=== PATIENT | female | born 1935 | race Caucasian/White ===

== ENCOUNTER 2017-08-30 09:41 | Observation (INO) | payer MEDICARE ==
[2017-08-30] VITALS (11 sets, daily range): BP systolic 95–176; BP diastolic 56–76
[~2017-08-30] VITALS: Ht 167.6 cm; Wt 57.6 kg
[2017-08-30] MEDS ORDERED: METO50TA2 PO (10:09)
--- NOTE | 2017-08-30 10:10 | ED Chest Pain ---
General Chief Complaint: Chest Pain Stated Complaint: CHEST/BACK PAIN Nursing Triage Note: ARRIVED VIA AMB TO ROOM 07 WITH COMPLAINTS OF BACK PAIN X2 DAYS THAT HAS MOVED INTO HER NECK, LEFT ARM, AND CHEST. Nursing Sepsis Screen: No Definite Risk Source: patient Exam Limitations: no limitations History of Present Illness Time seen by provider: 10:05 Initial Comments This 81-year-old white female presents with a complaint of sharp severe back pain between the shoulder blades that began several days ago and has subsequently radiated into the left side of the neck and left arm there is been similar but less intense chest pain in the anterior precordium. The patient's pain is not made worse with motion. There is no associated shortness of breath, nausea, diaphoresis, paresthesias or weakness in the extremities, or similar episode in the past. The patient is under the care of Drs. Sanders and Garrett. The patient has received treatment for dizziness from Dr. Tucker with medication. The history is somewhat mottled but I believe that Dr. Tucker has been treating an elevated blood pressure which she feels is causing dizziness. Patient states with the medication prescribed she is much improved in terms of her dizziness. 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 There is a family history of heart disease. Patient denies use of ethanol, recreational drugs, or nicotine. Allergies and Home Medications Allergies Coded Allergies: No Known Drug Allergies (Unverified , 02/17/14) Home Medications Metoprolol Tartrate 50 Mg Tablet, 50 MG PO DAILY, (Reported) Review of Systems Constitutional: chills, No fever EENTM: No Blurred Vision Respiratory: Denies Cough, Denies Shortness of Air Cardiovascular: Chest Pain Gastrointestinal: Denies Abdomen Distended, Denies Abdominal Pain, Denies Nausea, Denies Vomiting Genitourinary: Denies Burning, Denies Discharge Musculoskeletal: see HPI, back pain Skin: No change in color, No rash Psychiatric/Neurological: No Symptoms Reported Endocrine: No Symptoms Reported Hematologic/Lymphatic: No Symptoms Reported Past Mzombnq-Fvwuqw-Vpovkr Hx Patient Social History Recent Foreign Travel: No Contact w/Someone Who Travel: No Recent Infectious Disease Expo: No Immunizations Up To Date Date of Pneumonia Vaccine: Nov 05, 2009 Reviewed Nursing Assessment Reviewed/Agree w Nursing PMH: Yes Physical Exam Vital Signs Vital Sign - Last 12Hours 08/30/17 09:56 Temp 98.0 Pulse 63 Resp 18 B/P (MAP) 191/85 Pulse Ox 100 O2 Delivery Room Air Capillary Refill : Less Than 3 Seconds General Appearance: No Apparent Distress, WD/WN HEENT: PERRL/EOMI, Normal ENT Inspection Neck: Normal Inspection Respiratory: Lungs Clear Cardiovascular: Regular Rate, Rhythm, No Edema, No Gallop, No JVD, No Murmur, Normal Peripheral Pulses Gastrointestinal: Normal Bowel Sounds, No Organomegaly, No Pulsatile Mass, Non Tender, Soft Extremity: Normal Capillary Refill, Normal Inspection, Normal Range of Motion, Non Tender, No Calf Tenderness Neurologic/Psychiatric: Alert, Oriented x3, No Motor/Sensory Deficits, Normal Mood/Affect, 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 Norm as Tested Skin: Normal Color, Warm/Dry Progress/Results/Core Measures Results/Orders Lab Results Laboratory Tests Test 08/30/17 09:50 Range/Units White Blood Count 6.8 4.3-11.0 10^3/uL Red Blood Count 4.18 L 4.35-5.85 10^6/uL Hemoglobin 13.4 11.5-16.0 G/DL Hematocrit 41 35-52 % Mean Corpuscular Volume 98 80-99 FL Mean Corpuscular Hemoglobin 32 25-34 PG Mean Corpuscular Hemoglobin Concent 33 32-36 G/DL Red Cell Distribution Width 13.3 10.0-14.5 % Platelet Count 259 130-400 10^3/uL Mean Platelet Volume 10.3 7.4-10.4 FL Neutrophils (%) (Auto) 62 42-75 % Lymphocytes (%) (Auto) 26 12-44 % Monocytes (%) (Auto) 10 0-12 % Eosinophils (%) (Auto) 1 0-10 % Basophils (%) (Auto) 0 0-10 % Neutrophils # (Auto) 4.2 1.8-7.8 X 10^3 Lymphocytes # (Auto) 1.8 1.0-4.0 X 10^3 Monocytes # (Auto) 0.7 0.0-1.0 X 10^3 Eosinophils # (Auto) 0.1 0.0-0.3 10^3/uL Basophils # (Auto) 0.0 0.0-0.1 10^3/uL Prothrombin Time 13.6 12.2-14.7 SEC INR Comment 1.0 0.8-1.4 Activated Partial Thromboplast Time 29 24-35 SEC D-Dimer 1.12 H 0.00-0.49 UG/ML Sodium Level 140 135-145 MMOL/L Potassium Level 3.9 3.6-5.0 MMOL/L Chloride Level 106 98-107 MMOL/L Carbon Dioxide Level 27 21-32 MMOL/L Anion Gap 7 5-14 MMOL/L Blood Urea Nitrogen 12 7-18 MG/DL Creatinine 0.83 0.60-1.30 MG/DL Estimat Glomerular Filtration Rate > 60 BUN/Creatinine Ratio 14 Glucose Level 104 70-105 MG/DL Calcium Level 9.6 8.5-10.1 MG/DL Magnesium Level 2.0 1.8-2.4 MG/DL Total Bilirubin 0.6 0.1-1.0 MG/DL Aspartate Amino Transf (AST/SGOT) 15 5-34 U/L Alanine Aminotransferase (ALT/SGPT) 13 0-55 U/L Alkaline Phosphatase 61 40-136 U/L Myoglobin 38.0 10.0-92.0 NG/ML Troponin I < 0.30 <0.30 NG/ML Total Protein 6.6 6.4-8.2 GM/DL Albumin 3.9 3.2-4.5 GM/DL Lipase 17 8-78 U/L My Orders Orders - CLAUDINEERNIE MD Cbc With Automated Diff (08/30/17 10:03) Magnesium (08/30/17 10:03) Chest 1 View, Ap/Pa Only (08/30/17 10:03) Ekg Tracing (08/30/17 10:03) Cardiac Profile 1 (08/30/17 10:03) Comprehensive Metabolic Panel (08/30/17 10:03) Myoglobin Serum (08/30/17 10:03) Protime With Inr (08/30/17 10:03) Partial Thromboplastin Time (08/30/17 10:03) O2 (08/30/17 10:03) Monitor-Rhythm Ecg Trace Only (08/30/17 10:03) Lipid Panel (08/31/17 06:00) Nitroglycerin 0.4 Mg Btl 25's (Nitrostat (08/30/17 10:15) Saline Lock/Iv-Start (08/30/17 10:03) Lipase (08/30/17 10:03) Fibrin Degradation Products (08/30/17 10:03) Ct Chest W (08/30/17 10:54) Acetaminophen Tablet (Tylenol Tablet) (08/30/17 11:15) Iohexol Injection (Omnipaque 350 Mg/Ml 1 (08/30/17 11:30) Ns (Ivpb) (Sodium Chloride 0.9% Ivpb Bag (08/30/17 11:30) Medications Given in ED Current Medications Medications Dose Ordered Sig/Lito Route Start Time Stop Time Status Last Admin Dose Admin Acetaminophen 1,000 mg ONCE ONCE PO 08/30/17 11:15 08/30/17 11:16 DC 08/30/17 11:11 1,000 MG Iohexol 75 ml ONCE ONCE IV 08/30/17 11:30 08/30/17 11:31 DC 08/30/17 11:45 75 ML Nitroglycerin 0.4 mg UD PRN SL 08/30/17 10:15 08/30/17 10:44 DC 08/30/17 10:43 0.4 MG Sodium Chloride 100 ml ONCE ONCE IV 08/30/17 11:30 08/30/17 11:31 DC 08/30/17 11:45 80 ML Vital Signs/I&O Vital Sign - Last 12Hours 08/30/17 09:56 Temp 98.0 Pulse 63 Resp 18 B/P (MAP) 191/85 Pulse Ox 100 O2 Delivery Room Air Blood Pressure Mean: 120 Progress Note : Time: 13:41 Progress Note The patient's EKG they'll demonstrate evidence of an acute current of injury. Her first troponin was normal. The patient's d-dimer was elevated but fortunately her CT of the chest film demonstrated evidence of a pulmonary emboli. The patient's chest pain was treated with sublingual nitroglycerin 0.4 mg 3. The patient's back and chest neck and arm pain abated with the third nitroglycerin. Told consultation was undertaken with Dr. Sanders's office. I spoke to her nurse and the patient was admitted. I spoke with Dr. Saez for Dr. Tucker and a consult was arranged. Departure Communication (Admissions) Time/Spoke to Admitting Phy: 13:[address] Sanders Time/Spoke to Consulting Phy: 13:43 Communication/Consulting Dr. Saez Impression Impression: Primary Impression: Chest pain Qualified Codes: R07.9 - Chest pain, unspecified Disposition: 09 ADMITTED INPATIENT Condition: Improved Admissions Decision to Admit Reason: Admit from ER (General) Decision to Admit/Date: Aug 30, 2017 Time/Decision to Admit Time: 13:44 Departure-Patient Inst. Referrals: MIKE SANDERS MD (PCP/Family) Primary Care Physician ERNIE CHOW MD Aug 30, 2017 10:10
[2017-08-30 10:11] LABS: BASOPHILS % (AUTO) 0 % (0-10); EOSINOPHILS # (AUTO) 0.1 10^3/uL (0.0-0.3); EOSINOPHILS % (AUTO) 1 % (0-10); LYMPHOCYTES # (AUTO) 1.8 X 10^3 (1.0-4.0); LYMPHOCYTES % (AUTO) 26 % (12-44); MEAN CORPUSCULAR HEMOGLOBIN 32 PG (25-34); MEAN CORPUSCULAR HGB CONC 33 G/DL (32-36); MEAN CORPUSCULAR VOLUME 98 FL (80-99); MEAN PLATELET VOLUME 10.3 FL (7.4-10.4); MONOCYTES # (AUTO) 0.7 X 10^3 (0.0-1.0); MONOCYTES % (AUTO) 10 % (0-12); NEUTROPHILS # (AUTO) 4.2 X 10^3 (1.8-7.8); NEUTROPHILS % (AUTO) 62 % (42-75); PLATELET COUNT 259 10^3/uL (130-400); RED BLOOD COUNT 4.18 10^6/uL (4.35-5.85); RED CELL DISTRIBUTION WIDTH 13.3 % (10.0-14.5); WHITE BLOOD COUNT 6.8 10^3/uL (4.3-11.0)
[2017-08-30 10:14] LABS: PROTHROMBIN TIME PATIENT 13.6 SEC (12.2-14.7)
[2017-08-30] MEDS: NITROGLYCERIN 0.4 MG SL TABS BTL 25'S SL PRN ×3 (10:18→10:43)
[2017-08-30 10:26] LABS: ALANINE AMINOTRANSFERASE 13 U/L (0-55); ALBUMIN 3.9 GM/DL (3.2-4.5); ANION GAP 7 MMOL/L (5-14); ASPARTATE AMINO TRANSFERASE 15 U/L (5-34); BILIRUBIN,TOTAL 0.6 MG/DL (0.1-1.0); BLOOD UREA NITROGEN 12 MG/DL (7-18); BUN/CREATININE RATIO 14; CALCIUM 9.6 MG/DL (8.5-10.1); CARBON DIOXIDE 27 MMOL/L (21-32); CHLORIDE 106 MMOL/L (98-107); CREATININE SERUM 0.83 MG/DL (0.60-1.30); GFR ESTIMATED > 60; GLUCOSE 104 MG/DL (70-105); LIPASE 17 U/L (8-78); POTASSIUM 3.9 MMOL/L (3.6-5.0); SODIUM 140 MMOL/L (135-145); TOTAL PROTEIN 6.6 GM/DL (6.4-8.2)
--- NOTE | 2017-08-30 10:30 | Diagnostic Imaging Report ---
Upright portable radiograph of the chest. INDICATION: Chest pain. FINDINGS: The lungs are hyperinflated with no focal airspace opacity. The heart size is mildly enlarged. No effusion or pneumothorax. The mediastinum and lana appear unremarkable. Mild opacity along the medial aspect of the right lung base is probably related to a prominent pericardial fat pad. IMPRESSION: Hyperinflated clear lungs. Mild cardiomegaly. Dictated by: Dictated on workstation # [id number]
[2017-08-30] MEDS ORDERED: ACETAMINOPHEN 500 MG TAB (TYLENOL) PO ONE (11:15)
[2017-08-30] MEDS ORDERED: NS 100 ML (IVPB) BAG IV ONE (11:30)
[2017-08-30] MEDS ORDERED: IOHEXOL 350 MG/ML 100 ML (OMNIPAQUE 350) VIAL IV ONE (11:30)
--- NOTE | 2017-08-30 12:16 | Diagnostic Imaging Report ---
PROCEDURE: CT chest with contrast only. TECHNIQUE: Multiple contiguous axial images were obtained through the chest after administration of intravenous contrast. INDICATION: Chest pain. 75 mL of Omnipaque 350 is administered intravenously. FINDINGS: There is an anterior mediastinal lobulated fluid-attenuating mass measuring 2.9 x 1.4 x 3.1 cm. This is abutting the anterior aspect of the ascending aorta. The fluid attenuation and lack of enhancing component is suggestive of a benign etiology such as a pericardial cyst or lymphatic malformation. There is no enhancing mass in the mediastinum or significant enlarged lymph node. No lymphadenopathy in the alna. No axillary lymphadenopathy is seen. The thoracic aorta is normal in caliber. The heart size is at the upper limits of normal. The lungs demonstrate no significant consolidation or mass. Sections of the upper abdomen demonstrate hepatic cysts. These are seen mostly in the left hepatic lobe up to 1.6 cm in size. The osseous structures appear grossly unremarkable. IMPRESSION: 1. 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 No solid mass or lymphadenopathy is evident. 2. Hepatic cysts. Dictated by: Dictated on workstation # [id number]
--- OUTSIDE RECORDS SUMMARY | 2017-08-30 13:55 | XMS REPORT | Continuity of Care Document ---
Author Author [facility] Organization [facility] Address Unknown Phone Unavailable Allergies Active Description Code Type Severity Reaction Onset Reported/Identified Relationship to Patient Clinical Status Yes No Known Drug Allergies [id number] Drug Allergy Unknown N/ A 02/17/2014 Medications Problems Date Dx Coded Attending Type Code Diagnosis Diagnosed By 02/18/2014 ABDIEL OVERTON DO Ot 173.62 02/18/2014 ABDIEL OVERTON DO Ot V74.8 06/16/2015 ABDIEL OVERTON DO Ot 719.94 06/16/2015 ABDIEL OVERTON DO Ot V72.63 06/16/2015 ABDIEL OVERTON DO Ot V72.81 06/16/2015 ABDIEL OVERTON DO Ot V72.83 06/16/2015 ABDIEL OVERTON DO Ot V72.84 06/23/2015 VALDEMAR CASTANON, MIKE Valadez Ot 427.89 07/06/2015 VALDEMAR CASTANON, MIKE Valadez Ot 427.89 07/15/2015 MIKE ALDRICH MD Ot 427.89 10/13/2015 ASAEL CASTANON FACC, SHIVAM FACP CCDS Ot I10 10/13/2015 ASAEL CASTANON FACC, SHIVAM FACP CCDS Ot I49.5 10/13/2015 ASAEL CASTANON FACC, ALI FACP CCDS Ot I73.9 10/13/2015 ASAEL CASTANON FACC, ALI FACP CCDS Ot R06.00 10/13/2015 ASAEL CASTANON FACC, SHIVAM FACP CCDS Ot R07.89 10/21/2015 ASAEL CASTANON FACC, ALI FACP CCDS Ot I10 10/21/2015 ASAEL CASTANON FACC, SHIVAM FACP CCDS Ot I49.5 10/21/2015 ASAEL MAGUIREC, ALI FACP CCDS Ot I73.9 10/21/2015 ASAEL CASTANON FACC, ALI FACP CCDS Ot R06.00 10/21/2015 ASAEL CASTANON FACC, ALI FACP CCDS Ot R07.89 Procedures Results Encounters ACCT No. Visit Date/Time Discharge Status Pt. Type Provider Facility Loc./Unit Complaint [id number] 08/10/2015 10:30:00 2014 23:59:59 CLS Outpatient ASAEL CASTANON FACC, SHIVAM FACP CCDS [facility] RAD [id number] 08/10/2015 10:04:00 2014 23:59:59 CLS Outpatient ASAEL CASTANON FACC, ALI FACP CCDS [facility] CARD [id number] 06/16/2015 11:30:00 2014 23:59:59 CLS Outpatient MIKE ALDRICH MD [facility] CARD [id number] 02/18/2014 11:30:00 2013 15:15:00 DIS Outpatient ABDIEL OVERTON DO [facility] [id number] 02/17/2014 14:42:00 2013 23:59:59 CLS Outpatient ABDIEL OVERTON DO [facility] PREOP
[2017-08-30] MEDS ORDERED: NITROGLYCERIN 0.4 MG SL TABS BTL 25'S SL PRN (14:45)
[2017-08-30] MEDS ORDERED: morphine INJ 4 MG/ML 1 ML (VIAL/SYRINGE) IV PRN (14:45)
[2017-08-30] MEDS ORDERED: METO-272 PO (14:52)
[2017-08-30] MEDS ORDERED: ASPI-983 PO (14:54)
[2017-08-30] MEDS: ASPIRIN E.C. 325 MG (ECOTRIN) TABLET PO SCH (15:06)
--- NOTE | 2017-08-30 15:43 | Consultation-Cardiology ---
HPI-Cardiology Cardiology Consultation Date of Consultation 08/30/17 Date of Admission Time Seen by Provider: 15:38 Indication: Chest pain HPI Patient is an 81 year old female with history of SVT, dizziness and near syncope. Dr Tucker is patient's primary member services coordinator. Presented to the ER with complaints of chest pain radiating to the back. Reports improvement with SL nitro. Currently complaining of left sided chest pain/pressure with radiation to the left arm. Denies any associated jaw pain, dyspnea, nausea. No other complaints at this time. This is an 81 years old lady with history of SVT has been managed by Dr. Tucker , had history of dizziness and lightheadedness for which she was treated with beta blockers and was doing well. She is been having recurrent episode of chest pain became worse recently, complaining of headache and left sided neck pain radiating to the left shoulder left arm and left side of her chest. Came into the emergency room, reporting improvement after receiving sublingual nitroglycerin. Denied any palpitation, syncope or near syncopal episodes. I was called for evaluation. Home Medications & Allergies Allergies: Coded Allergies: No Known Drug Allergies (Unverified , 08/30/17) Home Medication List Reviewed: Yes SCB-Dnhsef-Kphqlp Hx Patient Social History Employed/Student: retired Alcohol Use: Denies Use Recreational Drug Use: No Smoking Status: Never a Smoker Recent Foreign Travel: No Recent Infectious Disease Expo: No Recent Hopitalizations: No Physical Abuse Screen: No Sexual Abuse: No Immunizations Up To Date Date of Pneumonia Vaccine: Nov 05, 2009 Past Medical History HTN, SVT, near syncope Family Medical History Family History: Myocardial infarction 19 FATHER Neoplasm 19 FATHER Constitutional: No dizziness, No fever, No malaise, No weakness EENTM: No blurred vision, No double vision, No vision loss Respiratory: No cough, No dyspnea on exertion Cardiovascular: No chest pain, No edema, No Hx of Intervention, No palpitations Gastrointestinal: No abdominal pain, No constipation Reviewed Test Results Reviewed Test Results Lab Laboratory Tests 08/30/17 09:50: White Blood Count 6.8, Red Blood Count 4.18L, Hemoglobin 13.4, Hematocrit 41, Mean Corpuscular Volume 98, Mean Corpuscular Hemoglobin 32, Mean Corpuscular Hemoglobin Concent 33, Red Cell Distribution Width 13.3, Platelet Count 259, Mean Platelet Volume 10.3, Neutrophils (%) (Auto) 62, Lymphocytes (%) (Auto) 26 , Monocytes (%) (Auto) 10, Eosinophils (%) (Auto) 1, Basophils (%) (Auto) 0, Neutrophils # (Auto) 4.2, Lymphocytes # (Auto) 1.8, Monocytes # (Auto) 0.7, Eosinophils # (Auto) 0.1, Basophils # (Auto) 0.0, Prothrombin Time 13.6, INR Comment 1.0, Activated Partial Thromboplast Time 29, D-Dimer 1.12H, Sodium Level 140, Potassium Level 3.9, Chloride Level 106, Carbon Dioxide Level 27, Anion Gap 7, Blood Urea Nitrogen 12, Creatinine 0.83, Estimat Glomerular Filtration Rate > 60, BUN/Creatinine Ratio 14, Glucose Level 104, Calcium Level 9.6, Magnesium Level 2.0, Total Bilirubin 0.6, Aspartate Amino Transf (AST/SGOT ) 15, Alanine Aminotransferase (ALT/SGPT) 13, Alkaline Phosphatase 61, Myoglobin 38.0, Troponin I < 0.30, Total Protein 6.6, Albumin 3.9, Lipase 17 08/30/17 15:33: ECG Impression ECG Initial ECG Rhythm: Normal Sinus Physical Exam Vital Signs Vital Sign - Last 12Hours 08/30/17 09:56 Temp 98.0 Pulse 63 Resp 18 B/P (MAP) 191/85 Pulse Ox 100 O2 Delivery Room Air Capillary Refill : Less Than 3 Seconds General Appearance: No Apparent Distress, WD/WN HEENT: PERRL/EOMI, TMs Normal, Normal ENT Inspection, Pharynx Normal Neck: Non Tender, Supple, No Carotid Bruit Respiratory: Chest Non Tender, Lungs Clear, Normal Breath Sounds, No Accessory Muscle Use, No Respiratory Distress Cardiovascular: Regular Rate, Rhythm, No Edema, No Gallop, No JVD, No Murmur, Normal Peripheral Pulses Gastrointestinal: Non Tender, Soft Rectal: Deferred Back: No CVA Tenderness Extremity: No Calf Tenderness, No Pedal Edema Neurologic/Psychiatric: Alert, Oriented x3, fish flipper II-XII Norm as Tested A/P-Cardiology Admission Diagnosis Chest pain HTN SVT Palpitations Assessment/Plan Chest pain, nonspecific etiology- currently c/o CP with radiation to left arm, rates pain 2/10. Earlier had CP in the ER relieved by nitroglycerin. EKG reveals no acute ST changes, cardiac enzymes are negative so far. Stress test done 2014 revealed no ischemia or infarct. Will continue on telemetry, continue to monitor. Planning for LST in the morning. HTN- resume home blood pressure medications and continue to monitor. Hx of SVT- maintained on Cardizem as outpatient Palpitations- Holter monitor in the past revealed SR with PAC's, PVC's. Denies any recent palpitations Questionable pericardial cyst on CT scan of chest- further evaluation with 2D Echo Thank you for allowing us to participate in the management of Ms. Almanza. This is Flavia Hinds PA-C as a scribe for Dr. Saez. This is Dr. Saez, I have seen and evaluated the patient with Flavia, interviewed the patient and perform physical examination and agree with the current scribe. She is an 81 years old lady who was admitted with chest pain as described above, currently chest pain-free. I will continue monitoring her and planning to proceed with Lexiscan stress test, she has history of hypertension which will be monitored and her starting home medication, her palpitation has improved. She has questionable pericardiac cyst on CT scan of the chest. Planning to evaluate echocardiogram and monitoring as an outpatient. on examination lungs were clear to auscultation bilaterally, heart is regular rate and rhythm. 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
[2017-08-30 15:56] LABS: CREATINE KINASE 65 U/L (29-168)
[2017-08-30 16:02] LABS: TROPONIN I < 0.30 NG/ML (<0.30)
[2017-08-30] MEDS ORDERED: INFLUENZA TRIvalent 2017-2018 0.5 ML/45 MCG SYR IM ONE (16:45)
[2017-08-30] MEDS: ACETAMINOPHEN 325 MG TABLET/CAPLET (TYLENOL) PO PRN (17:20)
--- NOTE | 2017-08-30 20:07 | History & Physicial ---
History of Present Illness History of Present Illness Reason for visit/HPI PT REPORTS THAT SHE STARTED TO HAVE CHEST DISCOMFORT WITH PAIN GOING FROM HER LATERAL LEFT CHEST WALL TO HER UPPER BACK AND LEFT ARM FOR ABOUT 2 DAYS. SHE REPORTS THAT SHE HAS HAD PAIN OFF AND ON IN HER LEFT LATERAL ARM FOR A WHILE AND HAS BEEN AVOIDING SLEEPING ON THE LEFT SIDE FOR ABOUT A WEEK DUE TO DISCOMFORT IN HER ARM. SHE STATES THAT SHE HAS HAD A HEADACHE FOR A FEW DAYS WELL. SHE DENIES CURRENT CHEST PAIN. SHE DENIES DIZZINESS, ABDOMINAL PAIN, NAUSEA, GI/BOWEL CHANGES, DYSURIA. Date of Admission Aug 30, 2017 at 13:40 Date Seen by Provider: Aug 30, 2017 Time Seen by Provider: 18:00 I consulted on this patient on Attending Physician Mike Sanders MD Admitting Physician Mike Sanders MD Consult Allergies and Home Medications Allergies Coded Allergies: No Known Drug Allergies (Unverified , 08/30/17) Home Medications Aspirin 81 Mg Tablet.dr, 81 MG PO DAILY, (Reported) Metoprolol Succinate 50 Mg Tab.er.24h, 50 MG PO DAILY, (Reported) Past Lcobbuh-Wvtpeb-Iymlso Hx Patient Social History Marrital Status: Living Status: LIVES ALONE IN HOME IN [place] Employed/Student: retired Alcohol Use: Denies Use Recreational Drug Use: No Smoking Status: Never a Smoker 2nd Hand Smoke Exposure: No Physical Abuse Screen: No Sexual Abuse: No Recent Foreign Travel: No Contact w/other who traveled: No Recent Hopitalizations: No Recent Infectious Disease Expo: No Immunizations Up To Date Date of Pneumonia Vaccine: Nov 05, 2009 Seasonal Allergies Seasonal Allergies: No Surgeries Yes (MELANOMA REMOVED FROM HAND) Tonsillectomy Respiratory No Currently Using CPAP: No Currently Using BIPAP: No Cardiovascular Yes High Cholesterol, Hypertension Neurological No Reproductive System : No Hx Reproductive Disorders: No Sexually Transmitted Disease: No HIV/AIDS: No Female Reproductive Disorders: Denies RECORDS TECH History: Menopausal Genitourinary No Gastrointestinal No Musculoskeletal No Endocrine History of Endocrine Disorders: Yes ("BOARDERLINE" DM- DOES NOT TAKE MEDS) HEENT History of HEENT Disorders: No Cancer Yes Skin Did You Recieve Any Treatments: No Psychosocial History of Psychiatric Problem: No Integumentary History of Skin or Integumenta: No Blood Transfusions History of Blood Disorders: No Adverse Reaction to a Blood Tr: No Reviewed Nursing Assessment Reviewed/Agree w Nursing PMH: Yes Family Medical History Significant Family History: Heart Disease, Cancer, Hypertension Family Hx: Myocardial infarction 19 FATHER Neoplasm 19 FATHER Constitutional: No chills, No fever, No malaise, No weakness EENTM: No blurred vision, No hoarseness, No throat pain, No throat swelling Respiratory: No cough, No dyspnea on exertion, No orthopnea, No short of breath Cardiovascular: chest pain, No edema, No syncope Gastrointestinal: No abdominal pain, No constipation, No diarrhea, No nausea Genitourinary: No dysuria, No hematuria Musculoskeletal: back pain, muscle pain (UPPER BACK), other (LEFT SHOULDER PAIN , LEFT CHEST WALL PAIN) Skin: no symptoms reported, No pruritus, No rash Psychiatric/Neurological: Denies Anxiety, Denies Depressed, Headache, Denies Numbness, Denies Weakness All Other Systems Reviewed Negative Unless Noted: Yes Physical Exam Vital Signs Vital Sign - Last 12Hours 08/30/17 09:56 Temp 98.0 Pulse 63 Resp 18 B/P (MAP) 191/85 Pulse Ox 100 O2 Delivery Room Air Capillary Refill : Less Than 3 Seconds General Appearance: No Apparent Distress, WD/WN Eyes: Bilateral Eye Normal Inspection, Bilateral Eye PERRL, Bilateral Eye EOMI HEENT: PERRL/EOMI, Pharynx Normal Neck: Full Range of Motion, Supple, Other (TENDER TO PALPATION OVER UPPER NECK/ BACK ON LEFT SIDE WITH SEVERAL TRIGGER POINTS IDENTIFIED) Respiratory: Lungs Clear, Normal Breath Sounds, No Accessory Muscle Use, No Respiratory Distress, Other (NO TENDERNESS TO A/P COMPRESSION OF CHEST WALL OVER STERNUM ON RIGHT OR LEFT, HOWEVER, SLIGHTLY TENDER OVER LATERAL EDGE OF PECTORALIS MUSCULATURE) Cardiovascular: Regular Rate, Rhythm, No Edema, No Murmur Gastrointestinal: Normal Bowel Sounds, Non Tender, Soft Rectal: Deferred Back: Other (TENDER OVER C 7 T1 LATERAL LEFT SPINE OVER MUSCULATURE) Extremity: Normal Capillary Refill, No Calf Tenderness, No Pedal Edema Neurologic/Psychiatric: Alert, Oriented x3, No Motor/Sensory Deficits, Normal Mood/Affect Skin: Warm/Dry Lymphatic: No Adenopathy Assessment/Plan Assessment and Plan CHEST PAIN HYPERTENSION HEADACHE BICEPS TENDONITIS FACET ARTHROPATHY CHEST PAIN - PT'S TROPONIN AND ALL OTHER CARDIAC MARKERS ARE NEGATIVE THUS FAR EXCEPT FOR SLIGHTLY ELEVATED D-DIMER. RECOMMENDED BY CARDIOLOGY THAT THE PATIENT HAS STRESS TESTING TOMORROW, WILL WAIT ON REPORT, IF NEGATIVE, WILL DISCHARGE PT TO HOME TOMORROW. HYPERTENSION - NOT OPTIMALLY CONTROLLED - PT ON TOPROL, WILL RESUME THIS MEDICATION AND MONITOR BLOOD PRESSURE RESPONSE, MAY NEED TO GO BACK UP TO PREVIOUS HOME DOSE. HEADACHE - LIKELY DUE TO BLOOD PRESSURE WELL SUBLINGUAL NITRO. BICEPS TENDONITIS AND FACET ARTHROPATHY - VOLTAREN GEL, DOSE OF TORADOL, HEAT TO UPPER BACK, MONITOR SYMPTOMS, WILL NEED OUTPATIENT THERAPY. 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
[2017-08-30] MEDS ORDERED: KETOROLAC 15 MG/ML VIAL IVP ONE (20:45)
[2017-08-30] MEDS: DICLOFENAC 1% GEL 100 GM (VOLTAREN) TUBE TOP SCH (21:07)
[2017-08-30 21:14] LABS: BILIRUBIN,URINE NEGATIVE (NEGATIVE); KETONES,URINE NEGATIVE (NEGATIVE); LEUKOCYTE ESTERASE ,URINE 1+ (NEGATIVE); NITRITE,URINE NEGATIVE (NEGATIVE); PH,URINE 6.5 (5-9); PROTEIN,URINE NEGATIVE (NEGATIVE); UROBILINOGEN,URINE NORMAL (NORMAL)
[2017-08-30 21:22] LABS: WBC,URINE 0-2 /HPF
[2017-08-31 00:07] VITALS: BP 144/63
[2017-08-31 04:00] VITALS: BP 124/62
[2017-08-31 06:49] LABS: CHOLESTEROL 220 MG/DL (< 200); DIRECT LDL 152 MG/DL (1-129); TRIGLYCERIDES 154 MG/DL (<150); VLDL CHOLESTEROL 31 MG/DL (5-40)
[2017-08-31 07:00] LABS: TROPONIN I < 0.30 NG/ML (<0.30)
[2017-08-31] MEDS: CATHETER FLUSH 10 ML SYR IV PRN ×2 (07:12→07:53)
[2017-08-31] MEDS ORDERED: REGADENOSON 0.4 MG/5 ML SYR (LEXISCAN) IV ONE ×2 (07:39→08:00)
[2017-08-31 07:49] VITALS: BP 155/85
[2017-08-31 08:00] VITALS: BP 151/70
[2017-08-31] MEDS: ACETAMINOPHEN 325 MG TABLET/CAPLET (TYLENOL) PO PRN (09:23)
[2017-08-31] MEDS: ASPIRIN E.C. 325 MG (ECOTRIN) TABLET PO SCH (09:23)
[2017-08-31] MEDS: DICLOFENAC 1% GEL 100 GM (VOLTAREN) TUBE TOP SCH (09:24)
[2017-08-31] MEDS ORDERED: KETOROLAC 15 MG/ML VIAL IVP NR (10:00)
--- NOTE | 2017-08-31 10:08 | Discharge Summary ---
Diagnosis/Chief Complaint Date of Admission Aug 30, 2017 at 13:40 Date of Discharge Discharge Date: Aug 31, 2017 Discharge Time: 11:00 Admission Diagnosis Admission Diagnosis CHEST PAIN HYPERTENSION HEADACHE BICEPS TENDONITIS FACET ARTHROPATHY Discharge Diagnosis CHEST PAIN HYPERTENSION HEADACHE BICEPS TENDONITIS FACET ARTHROPATHY HYPERLIPIDEMIA Reason Hospital Visit PT REPORTS THAT SHE STARTED TO HAVE CHEST DISCOMFORT WITH PAIN GOING FROM HER LATERAL LEFT CHEST WALL TO HER UPPER BACK AND LEFT ARM FOR ABOUT 2 DAYS. SHE REPORTS THAT SHE HAS HAD PAIN OFF AND ON IN HER LEFT LATERAL ARM FOR A WHILE AND HAS BEEN AVOIDING SLEEPING ON THE LEFT SIDE FOR ABOUT A WEEK DUE TO DISCOMFORT IN HER ARM. SHE STATES THAT SHE HAS HAD A HEADACHE FOR A FEW DAYS WELL. SHE DENIES CURRENT CHEST PAIN. SHE DENIES DIZZINESS, ABDOMINAL PAIN, NAUSEA, GI/BOWEL CHANGES, DYSURIA. Discharge Summary Consultations DR. ELISE Discharge Physical Examination Allergies: Coded Allergies: No Known Drug Allergies (Unverified , 08/30/17) Vitals & I&Os Vital Signs Date Time Temp Pulse Resp B/P (MAP) Pulse Ox O2 Delivery O2 Flow Rate FiO2 08/31/17 08:06 61 08/31/17 08:00 97.3 18 151/70 99 Room Air General Appearance: Alert, Oriented X3, Cooperative, No Acute Distress HEENT: Atraumatic, PERRLA, EOMI, Mucous Memb Moist/[place] Respiratory: Clear to Auscultation, Normal Air Movement Cardiovascular: Regular Rate Abdominal: Normal Bowel Sounds, Soft, No Tenderness Extremities: No Clubbing, Other (TTP OVER LEFT ANTERIOR AND LATERAL HEAD OF BIPCEPS TENDON AND LEFT UPPER BACK/SHOULDER) Skin: No Rashes Neuro: Strength at 5/5 X4 Ext, Cranial Nerves 3-12 NL, Other Psych/Mental Status: Mental Status NL, Mood NL Hospital Course CHEST PAIN HYPERTENSION HEADACHE BICEPS TENDONITIS FACET ARTHROPATHY HYPERLIPIDEMIA CHEST PAIN - PT'S TROPONIN AND ALL OTHER CARDIAC MARKERS ARE NEGATIVE THUS FAR EXCEPT FOR SLIGHTLY ELEVATED D-DIMER - CTA OF CHEST NEGATIVE. STRESS TESTING NEGATIVE. HYPERTENSION -RESUME HOME DOSE OF TOPROL - MONITOR PRESSURE AT HOME. HEADACHE - LIKELY DUE TO BLOOD PRESSURE WELL SUBLINGUAL NITRO. - HEADACHE RESOLVED TODAY. BICEPS TENDONITIS AND FACET ARTHROPATHY - VOLTAREN GEL, DOSE OF TORADOL, HEAT TO UPPER BACK, MONITOR SYMPTOMS, WILL NEED OUTPATIENT THERAPY. HYPERLIPIDEMIA - START ON LOW DOSE STATIN THERAPY AND CO-ENZYME Q10. Pending Labs Laboratory Tests 08/31/17 05:46: Glucometer 93, Troponin I < 0.30, Triglycerides Level 154, Cholesterol Level 220 , LDL Cholesterol Direct 152, VLDL Cholesterol 31, HDL Cholesterol 46 Discharge Condition at discharge CHEST PAIN RESOLVED Instructions to patient/family Please see electronic discharge instructions given to patient. 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
[2017-08-31] MEDS ORDERED: UBID1CAP53 PO (10:12)
[2017-08-31] MEDS ORDERED: DICL100G18 TOP (10:12)
[2017-08-31] MEDS ORDERED: IBUP200C11 PO (10:12)
[2017-08-31] MEDS ORDERED: ATOR10TA PO (10:12)
--- NOTE | 2017-08-31 10:22 | Discharge Inst-Complex ---
PDI Med Rec & Follow Up Appt. New Medications: Atorvastatin Calcium (Lipitor) 10 Mg Tablet 10 MG PO QHS, #30 TAB 6 Refills Ibuprofen (Advil) 200 Mg Capsule 400 MG PO Q6H PRN for PAIN-MILD TO MODERATE, #60 CAP Ubidecarenone/Vit E Acetate (Co Q-10 100 mg Softgel) 1 Each Capsule 1 EACH PO QHS for 30 Days, #30 CAP 6 Refills Diclofenac Sodium (Voltaren) 100 Gm Gel..gram. 2 GM TOP QID for 30 Days, #1 TUBE Continued Medications: Aspirin (Aspirin EC) 81 Mg Tablet.dr 81 MG PO DAILY, TAB Metoprolol Succinate (Metoprolol Succinate) 50 Mg Tab.er.24h 50 MG PO DAILY, TAB Prescription: Transmitted to Pharmacy Patient Instructions: USE HEAT TO UPPER BACK AND NECK FOUR TIMES A DAY AFTER USE OF VOLTAREN GEL. Activity, Diet and PDI Resume Normal Activity: Yes Discharge Diet: Regular Diet Diet for 24 Hours: No [place] Foods Drink 6-8 Glasses of Fluid/Day: Yes Driving Instructions: No Driving/Refer to Symptoms to Reoprt to : Appetite Changes, Fever Over 101 Degrees F, Shortness of Breath For Problems or Questions: Contact Your Physician, Go to Emergency Room Infection Signs and Symptoms: Temperature Above 101 F MIKE ALDRICH MD Aug 31, 2017 10:22
[2017-08-31] MEDS ORDERED: INFLUENZA TRIvalent 2017-2018 0.5 ML/45 MCG SYR IM ONE (10:32)
--- NOTE | 2017-08-31 11:02 | Cardiology Progress Note ---
Subjective Date Seen by Provider: Aug 31, 2017 Time Seen by Provider: 11:01 Subjective/Events-last exam Patient is feeling better, had a stress test which showed no ischemia or infarction with normal left ventricular function. Review of Systems General: No Chills, No Night Sweats, No Fatigue, No Malaise, No Appetite, No Other HEENT: No Head Aches, No Visual Changes, No Eye Pain, No Ear Pain, No Dysphasia , No Sinus Congestion, No Post Nasal Drip, No Sore Throat, No Other Pulmonary: No Dyspnea, No Cough, No Pleuritic Chest Pain, No Other Cardiovascular: Chest Pain, No: Palpitations, Orthopnea, Paroxysmal Noc. Dyspnea, Edema, Lt Headedness, Other Objective-Cardiology Exam Last Set of Vital Signs Vital Signs 08/31/17 08/31/17 08/31/17 08/31/17 08:00 08:06 09:58 10:51 Temp 98.7 Pulse 61 Resp 18 B/P (MAP) 151/70 Pulse Ox 99 O2 Delivery Room Air Capillary Refill : Less Than 3 Seconds I&O Intake and Output 09/01/17 00:00 Intake Total 0 ml Balance 0 ml Intake Oral 0 ml # Voids 1 General: Alert, Oriented X3, Cooperative, No Acute Distress HEENT: Atraumatic, PERRLA, EOMI, Mucous Memb Moist/[place] Lungs: Clear to Auscultation, Normal Air Movement Heart: Regular Rate Abdomen: Normal Bowel Sounds, Soft, No Tenderness Extremities: No Clubbing, Other (TTP OVER LEFT ANTERIOR AND LATERAL HEAD OF BIPCEPS TENDON AND LEFT UPPER BACK/SHOULDER) Skin: No Rashes Neuro: Strength at 5/5 X4 Ext, Cranial Nerves 3-12 NL, Other Psych/Mental Status: Mental Status NL, Mood NL A/P-Cardiology Admission Diagnosis Chest pain HTN SVT Palpitations Assessment/Plan Chest pain, nonspecific etiology- stress test showed no significant ischemia or infarction. Probably noncardiac pain HTN- resume home blood pressure medications and continue to monitor. Hx of SVT- maintained on Cardizem as outpatient Palpitations- Holter monitor in the past revealed SR with PAC's, PVC's. Denies any recent palpitations Questionable pericardial cyst on CT scan of chest- further evaluation with 2D Echo Okay for discharge from cardiac standpoint, arrange for follow-up with Dr. 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
[2017-08-31 12:00] VITALS: BP 151/70
--- NOTE | 2017-08-31 15:05 | STRESS TEST ---
DATE OF SERVICE: 08/31/2017 LEXISCAN MYOVIEW STRESS TEST REPORT Baseline heart rate is 58. Baseline blood pressure is 155/85. Baseline EKG is sinus rhythm with no ischemic changes. In summary, the patient was injected with 10.16 mCi of technetium-99 Myoview and the resting images were obtained. Then, the patient received 0.4 mg of Lexiscan followed by 31.9 mCi of technetium-99 Myoview. Throughout the test, there were no EKG changes. The resting and stress images were reviewed and compared in the short axis, horizontal long axis and vertical long axis views. Review of the images showed breast attenuation with no significant ischemia or infarction. SSS is 2, SDS 2, TID value 1.08. On the gated images, the left ventricle appeared to be normal size with normal contractility, calculated ejection fraction 77%. CONCLUSION: 1. The patient tolerated Lexiscan well. 2. Small left ventricle with no significant ischemia or infarction on SPECT images. 3. Normal left ventricular. 4. Normal contractility with calculated ejection fraction 77%. Job ID: [id number] DocumentID: [id number] Dictated Date: 08/31/2017 09:06:52 Lace Tearing Supervisor Date: 08/31/2017 15:04:30 Dictated By: KERI ELISE MD
== END 2017-08-31 12:00 | disposition home or self-care (01) ==
LOC: EDUNIT# 09:41 → ER 09:44 → INTOOBSV 13:40 → 4TH 13:40
PROVIDERS: ADMIT Family Medicine; ATTEND Family Medicine
DX: R07.9 Chest pain, unspecified (principal); I10 Essential (primary) hypertension; M75.22 Bicipital tendinitis, left shoulder; E78.5 Hyperlipidemia, unspecified; M47.813 Spondylosis without myelopathy or radiculopathy, cervicothoracic region; K76.89 Other specified diseases of liver; R91.8 Other nonspecific abnormal finding of lung field; Z79.899 Other long term (current) drug therapy
CPT/HCPCS: 36415; 71010; 71260; 78452; 80053; 80061; 81000; 82550; 82962; 83690; 83735; 83874; 84484; 85025; 85379; 85610; 85730; 93005; 93017; 93041; 93306; 94760

== ENCOUNTER 2017-09-26 09:45 | Outpatient (RCR) | payer MEDICARE ==
[~2017-09-26 09:45] MED LIST: ASPI-983 PO; ATOR10TA PO; DICL100G18 TOP; IBUP200C11 PO; METO-370 PO; METO50TA15 PO; UBID1CAP53 PO
== END 2017-11-01 15:31 | disposition home or self-care (01) ==
PROVIDERS: ATTEND Family Medicine
DX: M12.88 Other specific arthropathies, not elsewhere classified, other specified site (principal); M75.20 Bicipital tendinitis, unspecified shoulder

== ENCOUNTER → 2020-09-21 | Outpatient (CLI) | payer MEDICARE ==
[~2020-09-21] MED LIST changes: +ASPI-1238 PO; -ASPI-983 PO; -METO-370 PO; +METO50TA7 PO
--- NOTE | 2020-09-21 16:12 | Diagnostic Imaging Report ---
INDICATION: Asymptomatic postmenopausal female. COMPARISON: None. FINDINGS: AP Spine L1-L4: [BMD (g/cm2): 0.748] [T-Score: -.38] [Z-Score: -1.7] LT Hip Neck: [BMD (g/cm2): 0.660] [T-Score: -2.7] [Z-Score: -0.3] LT Hip Total: [BMD (g/cm2):0.737] [T-Score:-2.1] [Z-Score: 0.1] RT Hip Neck: [BMD (g/cm2):0.653] [T-Score:-2.8] [Z-Score:-0.4] RT Hip Total: [BMD (g/cm2):0.700] [T-score:-2.4] [Z-Score:-0.1] *Indicates significant change from prior examination based on 95% confidence level. World Health Organization criteria for BMD interpretation classify patients as Normal (T-score at or above -1.0), Osteopenic (T-score between -1.0 and -2.5) or Osteoporotic (T-score at or below -2.5). LIMITATIONS AND MODIFICATION: None. FRACTURE RISK (FRAX SCORE): The ten year probability of (%): Major Osteoporotic Fracture: [19.7] Hip Fracture: [7.9] IMPRESSION: 1. Osteoporosis. 2. Baseline examination. 3. See below National Osteoporosis Foundation guidelines on when to potentially initiate pharmacologic therapy. Based on the National Osteoporosis Foundation Guidelines, pharmacologic treatment should be initiated in any of the following, unless clinical conditions suggest otherwise: * Any patient with prior fragility fracture of the hip or vertebrae. A spine fracture indicates 5X risk for subsequent spine fracture and 2X risk for subsequent hip fracture. * Osteoporosis (T-score <-2.5). * Postmenopausal women and men age 50 and older with low bone mass/osteopenia (T-score between -1.0 and -2.5) by DXA and 10-year major osteoporotic fracture greater than 20% or a 10-year probability of hip fracture greater than 3%. These fracture risks are supplied above in the FRAX score, if applicable. * Clinician judgement and/or patient preferences may indicate treatment for people with 10-year fracture probabilities above or below these levels. Dictated by: Dictated on workstation # [id number]
--- NOTE | 2020-09-21 16:14 | Diagnostic Imaging Report ---
INDICATION: Routine screening. COMPARISON: No prior mammograms are available for comparison. TECHNIQUE: 2D and 3D bilateral screening mammography was performed with CAD. FINDINGS: Both breasts are heterogeneously dense, limiting the sensitivity of mammography. There are benign calcifications in both breasts. No mass or malignant appearing microcalcifications are seen. The axillae are unremarkable. IMPRESSION: No mammographic features suspicious for malignancy are identified. ACR BI-RADS Category 2: Benign findings. Result letter will be mailed to the patient. Note: At least 10% of breast cancer is not imaged by mammography. Dictated by: Dictated on workstation # [id number]
== END ==
LOC: RAD 14:00
PROVIDERS: ATTEND Family Medicine
DX: Z12.31 Encounter for screening mammogram for malignant neoplasm of breast (principal); M81.0 Age-related osteoporosis without current pathological fracture; E55.9 Vitamin D deficiency, unspecified; Z78.0 Asymptomatic menopausal state
CPT/HCPCS: 77063; 77067; 77080

== ENCOUNTER → 2023-08-23 | Outpatient (CLI) | payer MEDICARE ==
[~2023-08-23] MED LIST changes: +GADOTERATE 0.5 MMOL/ML (CLARISCAN) 20 ML VIAL IV ONE
--- NOTE | 2023-08-23 15:03 | Diagnostic Imaging Report ---
PROCEDURE: MR angiography of the brain without the use of contrast. TECHNIQUE: 3D [id number] non contrast enhanced MR angiography of the head was performed. A source data was reformatted into rotating MIP projections. INDICATION: TIA. ACDF, dizziness. COMPARISON: None. FINDINGS: Patent right intracranial ICA, MCA, ONIEL. Patent left intracranial ICA, MCA, ONIEL. 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 60% stenosis of the right HORTICULTURE WORKER P2 segment. No aneurysm or arteriovenous malformation. IMPRESSION: No large vessel occlusion. 60% stenosis of the right HORTICULTURE WORKER P2 segment No aneurysm or arteriovenous malformation. Dictated by: Dictated on workstation # [id number]
--- NOTE | 2023-08-23 16:33 | Diagnostic Imaging Report ---
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 TECHNIQUE: Routine MR angiography of the neck was initially performed using 2 D time of flight technique. Additionally 3-D time of flight technique was performed following injection of 15 cc Multihance. 3D reformatted images were performed on a separate workstation and reviewed. 3-D images were reviewed as well as axial source images. FINDINGS: Right carotid: Right carotid atherosclerosis without significant stenosis. The right internal carotid artery is patent and normal caliber. The right external carotid artery is patent. Right vertebral: Fibromuscular dysplasia. No significant stenosis.. Left carotid: Left carotid atherosclerosis without significant stenosis. The left internal carotid artery is patent and normal caliber. The left external carotid artery is patent. Left vertebral: Fibromuscular dysplasia. No significant stenosis.. The visualized aortic arch is normal. The origins of the brachiocephalic and subclavian arteries are normal. IMPRESSION: Bilateral carotid atherosclerosis without significant stenosis. Bilateral vertebral artery fibromuscular dysplasia. Dictated by: Dictated on workstation # [id number]
== END ==
LOC: RAD 14:00
PROVIDERS: ATTEND Physician Assistant
DX: I65.23 Occlusion and stenosis of bilateral carotid arteries (principal); R41.82 Altered mental status, unspecified; I77.3 Arterial fibromuscular dysplasia; I66.9 Occlusion and stenosis of unspecified cerebral artery
CPT/HCPCS: 70544; 70549; 93005